=== PATIENT | female | born 1990 | race Caucasian/White ===

== ENCOUNTER 2017-12-04 12:35 | Emergency (ER) | payer OTHER, MEDICAID ==
[~2017-12-04] VITALS: Ht 167.6 cm; Wt 63.5 kg
[~2017-12-04 12:35] MED LIST: CIPROFLOXACIN500 M1 PO; NOHOMEMEDICATIONS; NORCO 5-325 TA1 EACH PO; PRENATAL PO; ZOFRAN ODT4 MG PO
[2017-12-04 13:32] LABS: ABSOLUTE EOSINOPHILS 0.1 thou/uL (0.0-0.7); ABSOLUTE LYMPHOCYTES 1.7 thou/uL (0.8-5.3); ABSOLUTE MONOCYTES 0.4 thou/uL (0.0-1.2); BASOPHILS 0.3 %; EOSINOPHILS 1.6 %; HEMATOCRIT 39.3 % (37.0-47.0); HEMOGLOBIN 13.3 gm/dL (12.0-15.0); MCH 31.4 pg (26.0-34.0); MCHC 33.7 g/dL (28.0-37.0); MCV 93.1 fL (80.0-100.0); MONOCYTES 6.8 %; MPV 8.6 fl. (7.2-11.1); NUCLEATED RBCS 0 /100WBC; PLATELET COUNT* 241 thou/uL (150-400); POLYS 64.3 %; RBC 4.22 mil/uL (4.20-5.00); RDW-CV 12.9 % (10.5-14.5); WBC 6.2 thou/uL (4.0-11.0)
[2017-12-04 13:46] LABS: CALCIUM 8.2 mg/dL (8.5-10.1); CREATININE 0.7 mg/dL (0.6-1.3); POTASSIUM 3.6 mmol/L (3.5-5.1)
[2017-12-04 13:50] LABS: URINE BILIRUBIN NEGATIVE (Negative); URINE BLOOD TRACE (Negative); URINE CLARITY CLEAR; URINE COLOR YELLOW; URINE GLUCOSE-RANDOM NEGATIVE (Negative); URINE KETONES NEGATIVE (Negative); URINE LEUKOCYTES-REFLEX NEGATIVE (Negative); URINE NITRITE-REFLEX NEGATIVE (Negative); URINE PROTEIN NEGATIVE (Negative); URINE SPECIFIC GRAVITY 1.015 (1.005-1.030); URINE UROBILINOGEN 0.2 E.U./dl (0.2-1.0)
[2017-12-04 13:51] LABS: ALBUMIN 3.5 g/dL (3.4-5.0); TOTAL BILIRUBIN 0.6 mg/dL (<0.1-1.0); TOTAL PROTEIN 6.2 g/dL (6.4-8.2)
[2017-12-04] MEDS ORDERED: FLEXERIL PO (15:02)
[2017-12-04] MEDS ORDERED: TORADOL 10 MG T10 MG PO (15:02)
[2017-12-04 15:11] VITALS: BP 115/75
--- NOTE | 2017-12-04 16:14 | EKG ---
[place] [address] ELECTROCARDIOGRAM REPORT Name: BRAULIO JIMENEZ Room: [facility]#: [id number] Admission: 12/04/17 Attend Phys: Discharge: 12/04/17 Date of : 86 Report #: [id number] THIS REPORT FOR: //name// [facility] ED Test Date: 2017-12-04 Test Time: 12:54:48 Pat Name: BRAULIO JIMENEZ Department: Room: Gender: F Salesperson Driver: : [id number] Requested By: Sandhya Johnson Order Number: [id number] Dank MD: Jaciel Carreon Measurements Intervals Inlet Rate: 87 P: 62 GA: 137 QRS: 35 QRSD: 89 T: 50 QT: 396 QTc: 477 Interpretive Statements Sinus rhythm RSR' in V1 or V2, probably normal variant Borderline prolonged QT interval No previous ECG available for comparison Electronically Signed On 12-04-2017 16:14:34 CDT by Jaciel Carreon [email or web address] <ELECTRONICALLY SIGNED> By: Jaciel Carreon MD, [facility] 12/04/17 1614 1254 125 Jaciel Carreon MD, FACC /EPI
== END 2017-12-04 15:12 | disposition home or self-care (01) ==
LOC: M.ERS 12:35
PROVIDERS: Nurse Practitioner Family
DX: S23.3XXA Sprain of ligaments of thoracic spine, initial encounter (principal); J45.909 Unspecified asthma, uncomplicated; F17.210 Nicotine dependence, cigarettes, uncomplicated; X58.XXXA Exposure to other specified factors, initial encounter; Y93.89 Activity, other specified; Y92.89 Other specified places as the place of occurrence of the external cause; Y99.8 Other external cause status

== ENCOUNTER 2020-05-28 10:01 | Emergency (ER) | payer OTHER ==
[~2020-05-28] VITALS: Ht 165.1 cm; Wt 68.0 kg
[~2020-05-28 10:01] MED LIST changes: +FLEXERIL PO; +TORADOL 10 MG T10 MG PO
[2020-05-28] MEDS ORDERED: OTC ALLERGY MEDS (10:11)
[2020-05-28 11:17] LABS: INFLUENZA A ANTIGEN Negative (Negative); INFLUENZA B ANTIGEN Negative (Negative)
[2020-05-28 12:44] VITALS: BP 119/80
== END 2020-05-28 12:45 | disposition home or self-care (01) ==
LOC: M.ERS 10:01
PROVIDERS: Personal Emergency Response Attendant
DX: J06.9 Acute upper respiratory infection, unspecified (principal); Z20.828 Contact with and (suspected) exposure to other viral communicable diseases; J45.909 Unspecified asthma, uncomplicated